=== PATIENT | female | born 1990 | race Caucasian/White ===

== ENCOUNTER → 2024-08-07 10:51 | Outpatient (REF) | payer OTHER, SELFPAY | LOC: PNTC 10:51 | PROVIDERS: ATTENDING PHYSICIAN Advanced Practice Midwife | DX: O36.80X0 Pregnancy with inconclusive fetal viability, not applicable or unspecified (principal) | CPT/HCPCS: 76801; 76817 ==

== ENCOUNTER → 2024-12-04 13:32 | Outpatient (REF) | payer OTHER, SELFPAY | LOC: PNTC 13:32 | PROVIDERS: ATTENDING PHYSICIAN Advanced Practice Midwife | DX: O36.80X0 Pregnancy with inconclusive fetal viability, not applicable or unspecified (principal) | CPT/HCPCS: 76801; 76817 ==

== ENCOUNTER → 2025-01-07 15:42 | Outpatient (REF) | payer OTHER, SELFPAY | LOC: PNTC 15:42 | PROVIDERS: ATTENDING PHYSICIAN Advanced Practice Midwife | DX: Z36.0 Encounter for antenatal screening for chromosomal anomalies (principal); Z36.82 Encounter for antenatal screening for nuchal translucency; O09.521 Supervision of elderly multigravida, first trimester; O99.211 Obesity complicating pregnancy, first trimester | CPT/HCPCS: 76801; 76813 ==